=== PATIENT | female | born 1945 | race Caucasian/White ===

== ENCOUNTER 2022-12-25 11:49 | Emergency (ER) | payer OTHER ==
[2022-12-25 12:00] VITALS: BP 125/61; PULSE 70; RESP 16; TEMP 97.6; BMI 27.4
== END 2022-12-25 13:08 | disposition home or self-care (01) ==
LOC: JERFT 11:49
DX: H57.89 Other specified disorders of eye and adnexa (principal); Z77.098 Contact with and (suspected) exposure to other hazardous, chiefly nonmedicinal, chemicals
CPT/HCPCS: 99282-25

== ENCOUNTER 2023-10-28 18:22 | Observation (INO) | payer MEDICARE, OTHER ==
[2023-10-28 20:27] LABS: BASO % 0.7 % (0-2.0); EOS % 3.6 % (0-4.5); HEMATOCRIT 37.2 % (32.4-45.2); HEMOGLOBIN 12.6 GM/dL (10.7-15.3); LYMPH % 27.9 % (8-40); MCH 31.4 pg (25.7-33.7); MCHC 33.9 g/dl (32.0-36.0); MEAN CELL VOLUME 92.8 fl (80-96); MEAN PLT VOLUME 7.7 fl (7.5-11.1); MONO % 7.4 % (3.8-10.2); NEUT % 60.4 % (42.8-82.8); PLATELET COUNT 230 10^3/uL (134-434); RBC 4.01 M/mm3 (3.60-5.2); RDW 14.9 % (11.6-15.6); WHITE BLOOD COUNT 6.1 K/mm3 (4.0-10.0)
[2023-10-28 20:27] LABS: PH,URINE 6.5 (5.0-8.0); URINE APPEARANCE CLEAR; URINE BILIRUBIN NEGATIVE (NEGATIVE); URINE COLOR YELLOW; URINE GLUCOSE (UA) NEGATIVE (NEGATIVE); URINE KETONE NEGATIVE (NEGATIVE); URINE LEUK ESTERASE NEGATIVE (NEGATIVE); URINE NITRITE NEGATIVE (NEGATIVE); URINE PROTEIN NEGATIVE (NEGATIVE); URINE UROBILINOGEN 0.2 mg/dL (0.2-1.0)
[2023-10-28] MEDS ORDERED: ACETAMINOPHEN INJECTION 100 ML IVPB ONE (20:28)
[2023-10-28 20:35] LABS: INR 0.91 (0.83-1.09); PROTHROMBIN TIME (PATIENT) 10.3 SEC (9.7-13.0)
[2023-10-28 20:37] LABS: ACTIVATED PTT 29.3 SECONDS (25.2-36.5)
[2023-10-28 20:45] LABS: POTASSIUM 4.2 mmol/L (3.5-5.1)
[2023-10-28 20:48] LABS: CALCIUM 9.8 mg/dL (8.5-10.1)
[2023-10-28 20:49] LABS: ALBUMIN 3.9 g/dl (3.4-5.0); BLOOD UREA NITROGEN 16.9 mg/dL (7-18); MAGNESIUM 2.2 mg/dL (1.8-2.4)
[2023-10-28 20:52] LABS: CREATININE 0.8 mg/dL (0.55-1.3); PHOSPHOROUS 3.4 mg/dL (2.5-4.9)
[2023-10-28 20:53] LABS: BILIRUBIN,TOTAL 0.3 mg/dL (0.2-1)
[2023-10-28] MEDS: ACETAMINOPHEN 1000 MG/100 ML BAG IVPB ONE (21:59)
[2023-10-28] MEDS: SODIUM CHLORIDE 500 ML IV STA (21:59)
[2023-10-29 06:41] LABS: HEMOGLOBIN 11.9 GM/dL (10.7-15.3); MCH 31.3 pg (25.7-33.7); MCHC 33.2 g/dl (32.0-36.0); MEAN CELL VOLUME 94.4 fl (80-96); MEAN PLT VOLUME 7.8 fl (7.5-11.1); PLATELET COUNT 214 10^3/uL (134-434); RBC 3.81 M/mm3 (3.60-5.2); RDW 14.6 % (11.6-15.6); WHITE BLOOD COUNT 5.2 K/mm3 (4.0-10.0)
[2023-10-29 06:59] LABS: POTASSIUM 4.1 mmol/L (3.5-5.1)
[2023-10-29 07:03] LABS: ALBUMIN 3.3 g/dl (3.4-5.0); BLOOD UREA NITROGEN 13.4 mg/dL (7-18); CALCIUM 9.2 mg/dL (8.5-10.1); MAGNESIUM 2.1 mg/dL (1.8-2.4)
[2023-10-29 07:06] LABS: CREATININE 0.8 mg/dL (0.55-1.3); PHOSPHOROUS 3.4 mg/dL (2.5-4.9)
[2023-10-29 07:08] LABS: BILIRUBIN,TOTAL 0.4 mg/dL (0.2-1); TOT PROT 6.2 g/dl (6.4-8.2)
[2023-10-29] MEDS ORDERED: LACOSAMIDE 50 MG TABLET PO ONE (10:37)
[2023-10-29] MEDS ORDERED: ENOXAPARIN NA (PORCINE) 40 MG/0.4 ML DISP.SYRIN SQ ONE (10:37)
[2023-10-29] MEDS: ENOXAPARIN NA (PORCINE) 40 MG/0.4 ML DISP.SYRIN SQ SCH (10:41)
[2023-10-29] MEDS: LACOSAMIDE 50 MG TABLET PO SCH (10:42)
[2023-10-29] MEDS: FLUoxetine HCL 10 MG CAPSULE PO SCH (11:04)
[2023-10-29] MEDS: lamoTRIgine 100 MG TABLET PO SCH (11:04)
[2023-10-29] MEDS ORDERED: ACETAMINOPHEN 325 MG TABLET (FP) ONE (15:34)
[2023-10-29] MEDS ORDERED: LIDOCAINE 4% PATCH TP ONE (15:34)
[2023-10-29] MEDS: ACETAMINOPHEN 325 MG TABLET (FP) PO PRN (15:38)
[2023-10-29] MEDS: LIDOCAINE 4% PATCH TP SCH (15:38)
[2023-10-29] MEDS ORDERED: KETOROLAC TROMETHAMINE 15 MG/ML VIAL IVPUSH PRN (19:41)
[2023-10-29] MEDS ORDERED: KETOROLAC TROMETHAMINE 15 MG/ML VIAL ONE (20:17)
[2023-10-29] MEDS: KETOROLAC TROMETHAMINE 15 MG/ML VIAL IVPUSH ONE (21:12)
[2023-10-29 22:51] VITALS: BMI 29.3
[2023-10-29] MEDS: LIDOCAINE PATCH REMOVAL MC SCH (23:38)
[2023-10-30 00:57] VITALS: RESP 18
[2023-10-30 16:36] VITALS: BP 129/62; PULSE 74; TEMP 98.5
== END 2023-10-30 17:28 | disposition home or self-care (01) ==
LOC: JER 18:22 → JERBED 21:47 → J4S 10-29 22:05
PROVIDERS: ADMIT Internal Medicine; ATTEND Internal Medicine
PROC: 3E0337Z Introduction of Electrolytic and Water Balance Substance into Peripheral Vein, Percutaneous Approach (ICD-10-PCS; principal; 2023-10-28)
DX: R55 Syncope and collapse (principal); E78.5 Hyperlipidemia, unspecified; G40.109 Localization-related (focal) (partial) symptomatic epilepsy and epileptic syndromes with simple partial seizures, not intractable, without status epilepticus; R29.6 Repeated falls; Q21.12 Patent foramen ovale; Z87.820 Personal history of traumatic brain injury; Z91.013 Allergy to seafood; Z91.041 Radiographic dye allergy status
CPT/HCPCS: 0241U-QW; 36415; 70450-TC; 70486-TC; 71045-TC-FY; 72125-TC; 73030-TC-RT-FY; 80053; 80061; 80175; 81003; 82550; 82962; 83605; 83735; 84100; 84443; 84484; 85025; 85027; 85610; 85730; 86850; 86900; 86901; 87086; 93306-TC; 93880-TC; 96360; 97116-GP; 97161-GP; 99285-25; G0378; G0480

== ENCOUNTER 2024-08-13 08:22 | Emergency (ER) | payer MEDICARE, OTHER ==
[2024-08-13 08:36] VITALS: BP 112/60; PULSE 84; RESP 20; TEMP 98.5; BMI 29.2
[2024-08-13 09:39] LABS: THROAT:GRP A STREP NOT DETECTED (NOTDETECTED)
[2024-08-13] MEDS: MAG HYDROX/ALH/SMC/DPHA/LIDO 240 ML MOUTHWASH MM ONE (09:51)
[2024-08-13] MEDS ORDERED: MAG HYDROX/ALH/SMC/DPHA/LIDO 240 ML MOUTHWASH MM SCH (12:00)
== END 2024-08-13 10:34 | disposition home or self-care (01) ==
LOC: JER 08:22
DX: U07.1 COVID-19 (principal); R09.81 Nasal congestion; R09.89 Other specified symptoms and signs involving the circulatory and respiratory systems; R05.9 Cough, unspecified; R68.83 Chills (without fever)
CPT/HCPCS: 0241U-QW; 71046-TC-FY; 87651; 99284-25